=== PATIENT | female | born 1985 | race Two or more races ===

== ENCOUNTER 2023-08-14 04:32 | Inpatient (IN) ==
[2023-08-14] MEDS: LACTATED RINGER'S 1,000 ML IV SCH (08:05)
[2023-08-14] MEDS: BUTORPHANOL TARTRATE 2 MG/ML VIAL IV PRN (08:28)
--- NOTE | 2023-08-14 10:08 | History & Physical Report ---
Date of Service August 14, 2023 Assessment & Plan (1) Normal labor: (2) Hypothyroidism during , antepartum: (3) Supervision of elderly multigravida: (4) : Plan Will admit patient fo L&D for further monitoring and management VSS Fetus cat 1 EFW 55% (US from 07/12/23) Rh positive mother GBS negative Rubella immune AROM done Patient would not like epidural; will order IV Stadol for labor pain management Patient geovanni spontaneously, so currently can hold off on augmentation with Pitocin Patient in agreement. History of Present Illness Chief Complaint: LABOR CHECK Primary Care Provider: NO PCP Ms. García is a 38 y/o female with PMHx of Hypothyroidism who is currently at IUP 37 5/7 WGA with an [place] 08/30/23 as determined by certain LMP who is here for labor check. Garrett hospitality host (ipad) used in room and spouse also helping with interpretation. She began to have contractions earlier this mo rning at around 4am that were occurring regularly every 5-10 minutes. Since they began, they have gotten more frequent and intense. She has not had any bloody shows or watery discharge. (+) contractions (+) movement (-) fluid loss (-) bloody show External FHT and external uterine monitors used * Category 1 tracing * Moderate FHT variability. Had regular appointments since 2nd trimester. OB Labs: Blood Type B Positive 03/19/23 Antibody Screen NEGATIVE 03/19/23 Hemoglobin 10.7 g/dl (12.0-16.0) L 06/25/23 Hematocrit 32.5 % (37.0-47.0) L 06/25/23 Mean Corpuscular Volume 86.7 fL (80.0-100.0) 06/25/23 Platelet Count 244 K/uL (130-400) 06/25/23 Rubella IgG Antibody Immune (Immune) 03/19/23 Rapid Plasma Reagin Nonreactive (Nonreactive) 03/19/23 Hepatitis B Surface Antigen. NON-REACTIVE (NON-REACTIVE) 03/19/23 Hepatitis C Antibody (EIA) NON-REACTIVE (NON-REACTIVE) 03/19/23 HIV (1&2) Ag and Ab Confirmation NON-REACTIVE (NON-REACTIVE) 03/19/23 Glucose 1 Hour 50 gm Load 104 mg/dl (70-130) 06/14/23 OB Optional Labs: Hemoglobin Electrophoresis Interp see note 03/22/23 Chlamydia trachomatis RNA Not Detected (NotDetected) 03/19/23 Neisseria gonorrhoeae RNA Not Detected (NotDetected) 03/19/23 Thyroid Stimulating Hormone (TSH) 2.873 uIu/ml (0.300-4.500) 07/12/23 Allergies Allergy/AdvReac Type Severity Reaction Status Date / Time No Known Allergies Allergy Verified 08/09/23 09:51 Home Medications Medication Instructions Recorded Confirmed Type levothyroxine 88 mcg tablet 88 mcg PO DAILY #30 tabs 06/14/23 08/14/23 Rx vitamin B complex (B 1 tab PO DAILY 06/28/23 08/14/23 History Complex-Vitamin B12 tablet) ferrous sulfate 325 mg (65 mg 325 mg PO DAILY 08/14/23 08/14/23 History iron) tablet (Iron (ferrous sulfate)) Patient History Medical History (Updated 08/14/23 @ 11:03 by Stefanie Guthrie MD, FACOG) Anemia, unspecified Hypothyroidism Social History (Updated 03/12/23 @ 10:08 by Lora Cardenas) Smoking Status: Never smoker Do You Dip or Chew Tobacco: No; Hx Alcohol Use: No Hx Substance Use: No Preferred Language: Brenda Communication Ability: Unable Communication Tools: IPad Billing Manager Required: Yes Beliefs That Will Affect Care: None marital status: marital status details: spouse: [phone] Current Living Situation: Family Current Living Situation Comment: lives with spouse and 3 kids current occupational status: unemployed Other Information That Helps Us Care for You: No Feels Safe at Home: Yes OB History Del. Date GA wks Lbr Lgth wt Sex Type del Anes Place Del Prov ? Comment 10/08/08 39 4lb 8oz F None Other Leydi N 12/13/10 39 5lbs F None Oth er Leydi N 01/24/18 39 5lb 8oz. M None Other Leydi N RESTAURANT HOST/HOSTESS History Last menstrual period: Yes Menstrual reliability: definite Flow: normal Menstrual regularity: regular Monthly: Yes Age at menarche: 13 On control pills at conception: No Date of positive home test: 02/18/23 Menstrual history comments: 28 day cycles. Details: never had a pap smear Review of Systems no fever, no chills and no sweats Denies changes in vision. Denies shortness of breath or respiratory difficulty. no chest pain and no palpitations no dysuria no headache(s) Physical Exam Physical Exam: General: Alert, oriented x3. Afebrile. No acute distress. Cardiac: Regular rate and rhythm, no murmurs/rubs/gallops. Respiratory: Clear to auscultation bilaterally a/p, no wheezes/rales/rhonchi. No increased work of breathing. Symmetrical chest rise. No respiratory distress. Abdomen: Gravid; FHR baseline 125-130 bpm; Position: vertex Pelvic: 4.5/90/-[address] Guthrie Lower Extremities: No lower extremity edema or swelling. No deep calf pain. Sara's negative bilaterally Results & Data Vital Signs (Past 12 Hours) Vital Signs Temp Pulse Resp BP 08/14/23 07:24 36.6 C 85 16 119/75 08/14/23 05:10 36.9 C 18 08/14/23 05:08 88 119/71 Supervising Physician Co-Signing Physician Notes Resident Physician Supervision Note: I was present with Dr. Chadwick during the history and exam. I discussed the case with the resident and agree with the findings and plan as documented in the note. Any exceptions or clarifications are listed here: 38yo at term with labor, arom clear. declines epidural pain mgmt but would like additional stadol doses prn. aware that baby may come out sleepy with this med and may not offer close to delivery timing. they verbalized understanding. spouse tells me they want to pursue sterilization for her after delivery. has not been discussed prior and so will plan as interval tubal. will d/w her after delivery. hospitality host used through entire interview today. Documented By: Stefanie Guthrie MD, FACOG
[2023-08-14] MEDS ORDERED: LIDOCAINE 1% LOCAL 20 ML VIAL INFIL PRN (10:15)
[2023-08-14] MEDS ORDERED: OXYTOCIN 30 UNITS/NSS 30 UNITS/500 ML BAG IV PRN (10:15)
[2023-08-14] MEDS ORDERED: LACTATED RINGER'S 1,000 ML IV PRN (10:15)
[2023-08-14] MEDS: BUTORPHANOL TARTRATE 2 MG/ML VIAL IV STA (10:26)
[2023-08-14 10:53] LABS: Hematocrit (blood only) 37.1 % (37.0-47.0); Hemoglobin 12.5 g/dl (12.0-16.0); Mean Corpuscular Hemoglobin 29.7 pg (25.0-34.0); Mean Corpuscular Hgb Conc 33.7 g/dL (32.0-36.0); Mean Corpuscular Volume 88.1 fL (80.0-100.0); Mean Platelet Volume 9.6 fL (9.4-12.4); Platelet Count 224 K/uL (130-400); RDW Coefficient of Variation 15.1 % (11.5-14.5); RDW Standard Deviation 48.6 fL (36.4-46.3); Red Blood Count 4.21 M/uL (4.20-5.40); White Blood Count 11.99 K/ul (4.8-10.8)
--- NOTE | 2023-08-14 11:06 | Labor Progress Brief Note ---
Date of Service August 14, 2023 Subjective [address]sp by nursing to complete and ready to push Assessment & Plan (1) Normal labor: Plan begin 2nd stage. fhts categ 1. encouraging her to push, some language barrier, fleet dispatch manager being used. Admission and Anticipated Discharge Date Admission Date: August 14, 2023 Physical Exam Constitutional: WD/WN, vitals as above Genitourinary: Manual OB Exam: + cervical dilation 10 cm, + cervical effacement 100% and + station (not pushing effectively) + 2 OB Exam Monitor Tracing: + external FHT monitor used, + external uterine monitor used, + category I, + normal FHT variability, + early decelerations present and + variable decelerations Results & Data Vital Signs (Past 12 Hours) Vital Signs Temp Pulse Resp BP 08/14/23 10:52 106 H 128/79 08/14/23 07:24 97.9 F 85 16 119/75 08/14/23 05:10 98.4 F 18 08/14/23 05:08 88 119/71 Coding Level of Care Code None Diagnoses Normal labor O80; Z37.9
[2023-08-14] MEDS ORDERED: ACETAMINOPHEN 325 MG TAB PO PRN (13:50)
[2023-08-14] MEDS ORDERED: HYDROCORTISONE ACETATE 25 MG SUPP PR PRN (13:50)
[2023-08-14] MEDS ORDERED: bisacodyL 10 MG SUPP PR PRN (13:50)
--- NOTE | 2023-08-14 13:50 | Delivery Summary ---
Vaginal Delivery Summary Date of Service August 14, 2023 Vaginal Delivery Summary and 2nd Degree LAC The patient dilated to complete and began 2nd stage. She was becoming exhausted and requested assistance. She was made aware of vacuum assistance and informed consent obtained. Apparently this was used with her last delivery. Bladder was drained for 50cc urine under sterile conditions. Vacuum applied and over one ctx, 2 pushes with no popoffs cephalic delivered. With delivery of cephalic bloody fluid was noted and patient continued to push to deliver shoulders and body for a viable female infant Apgars 8 and 9 via over 2nd degree perineal laceration. Mouth and nose bulb suctioned. Infant was vigorous and crying at , of note bloody fluid covered baby. Cord clamped at >30 seconds of life and infant to maternal abdomen where the cord was then doubly clamped and cut. Laceration repaired in usual fashion with 3-0 vicryl after 1% local lidocaine anesthesia. Placenta delivered spontaneously and intact, three- vessel cord. This took several minutes therefore not consistent with abruption however about 150cc clot expelled immediately after delivery of placenta which could be consistent with recent small abruption, unclear. Hemostasis achieved with dilute pitocin and uterine massage. Cervix and sulci intact. EBL 400 cc. Mother and baby stable in recovery. [facility] Vaginal Delivery Charge Delivery Type Details: and 2nd Degree LAC
[2023-08-14] MEDS: IBUPROFEN 600 MG TAB PO PRN (13:57)
[2023-08-14] MEDS: OXYTOCIN 30 UNITS/NSS 30 UNITS/500 ML BAG IV PRN (14:11)
[2023-08-14] MEDS: OXYTOCIN 20 UNITS/LR 1,002 ML IV SCH (15:41)
[2023-08-14] MEDS: BENZOCAINE 20% SPRY 85 APPLN/85 GM CAN EXT PRN (18:08)
[2023-08-14] MEDS: DOCUSATE SODIUM 100 MG CAP PO SCH (22:28)
[2023-08-15] MEDS: LEVOTHYROXINE SODIUM 88 MCG TABLET PO SCH (07:04)
[2023-08-15 07:16] LABS: Hematocrit (blood only) 27.3 % (37.0-47.0); Hemoglobin 9.1 g/dl (12.0-16.0)
--- NOTE | 2023-08-15 07:35 | Obstetrical Progress Note ---
Date of Service <Georgina Chadwick MD - Last Filed: 08/15/23 07:35> August 15, 2023 Assessment & Plan <Georgina Chadwick MD - Last Filed: 08/15/23 07:35> (1) Encounter for assessment: Plan Patient with the above mentioned history and findings was evaluated at bedside and found awake, alert, oriented in all spheres, afebrile, and in no acute distress. Vital signs showed no fever and blood pressures remained stable but on the soft side. Patient not referring lightheadedness or dizziness, no tachycardia or palpitations. Her blood type is B positive and today's hemoglobin is adequate at 9.1 g/dL. Patient asymptomatic as mentioned previously Serologies are negative for GBS and patient is Rubella immune. Overall, patient is doing well clinically and meeting the desired milestone for her course. Therefore, will discharge patient today. Patient was counselled on discharge instructions. She is to make an appointment with her OB for 6 weeks after discharge for follow up evaluation. Patient expressed wish to get tubal ligation/sterilization. Will discuss with and will then re- visit in 6 week pp evaluation. All questions were answered. <Stefanie Guthrie MD, FACOG - Last Filed: 08/15/23 07:56> (1) Encounter for assessment: Day #:: 1 Subjective <Georgina Chadwick MD - Last Filed: 08/15/23 07:35> Mrs. García is a 38 y/o female who is now PPD # 1 following vacuum assisted at 37 5/7 weeks. Reports feeling well overall this morning. Refers mild abdominal cramping & 2/10 pain well managed on analgesics. Voiding spontaneously. Tolerating meals overnight and able to ambulate some. Has passed gas but no bm yet. Some persistent lochia with some improvement this morning. Breast and Bottle feeding. Constitutional: no fever, no chills or no sweats Denies shortness of breath or difficulty breathing Cardiovascular: no chest pain or no palpitations Breast: no breast pain Genitourinary (female): no dysuria Neurologic: no headache(s) Denies changes in vision Physical Exam <Georgina Chadwick MD - Last Filed: 08/15/23 07:35> General: Alert. Oriented to person, time, and place. Afebrile. No acute distress. Cardiac: Regular rate and rhythm, no murmurs/rubs/gallops. Respiratory: Clear to auscultation bilaterally a/p, no wheezes/rales/rhonchi. No increased work of breathing. Symmetrical chest rise. No respiratory distress. Abdomen: Soft, nontender, nondistended. Bowel sounds present. Uterus: Uterine fundus firm, non tender, and palpable at umbilicus. Lower Extremities: No lower extremity edema or swelling. No deep calf pain. Sara's negative bilaterally. Psych: Euthymic affect. Mood and affect congruence. Regular speech rate and content. Results & Data <Georgina Chadwick MD - Last Filed: 08/15/23 07:35> Vital Signs (Past 12 Hours) Vital Signs Temp Pulse Resp BP Pulse Ox O2 Del Method 08/15/23 04:25 36.4 C L 81 16 102/64 99 Room Air 08/14/23 22:55 37.2 C 102 H 18 93/57 L 96 Room Air Supervising Physician <Stefanie Guthrie MD, FACOG - Last Filed: 08/15/23 07:56> Co-Signing Physician Notes Resident Physician Supervision Note: I was present with Dr. Chadwick during the history and exam. I discussed the case with the resident and agree with the findings and plan as documented in the note. Any exceptions or clarifications are listed here: pt doing well. no issues with bleeding or pain. . does want to plan tubal sterilization for herself as her spouse mentioned. he is not interested in vasectomy. made aware that will self pay will need to see if wants to incur the costs of this procedure out of pocket. abd soft ff 2 down nt, ext nt calves. ppd#1 s/p vavd. doing well. breast, rhpos, ri. dc home later. instructions reviewed. welt wheeler used for entire visit. Plan pp with sudhir 09/19 at 130pm, arranged ahead of time due to language barrier. she plans to dw her spouse tubal ligation. Documented By: Stefanie Guthrie MD, FACOG
[2023-08-15] MEDS: DIPHTHER/TETAN/PERTUS Vaccine (Tdap, Adol/Adult) 0.5mL IM ONE (07:59)
[2023-08-15] MEDS: PRENATAL VITAMIN 1 TAB PO SCH (09:44)
[2023-08-15] MEDS: VITAMIN B COMPLEX TAB PO SCH (09:44)
[2023-08-15] MEDS: FERROUS SULFATE 325 MG TAB PO SCH (09:44)
[2023-08-15] MEDS ORDERED: bisacodyL 5 MG TABEC PO SCH (20:00)
== END 2023-08-15 16:55 | disposition home or self-care (01) | DRG 807 ==
LOC: OPB 04:32 → 4S1 04:45 → 4E2 16:25
DX: Z3A.37 37 weeks gestation of pregnancy; Z37.0 Single live birth; O70.1 Second degree perineal laceration during delivery